=== PATIENT | male | born 1980 | race Two or more races ===

== ENCOUNTER 2022-04-10 18:12 | Emergency (ER) | payer OTHER ==
[~2022-04-10] VITALS: Ht 190.5 cm; Wt 121.2 kg
[2022-04-10] MEDS ORDERED: SPIR-10 PO (18:27)
[2022-04-10] MEDS ORDERED: CRES20TA2 PO (18:27)
[2022-04-10] MEDS ORDERED: JARD1TAB PO (18:27)
[2022-04-10] MEDS ORDERED: CORE12.5 PO (18:27)
[2022-04-10] MEDS ORDERED: ENTR1TAB PO (18:27)
[2022-04-10] MEDS ORDERED: MELA3TAB24 PO (18:27)
[2022-04-10] MEDS ORDERED: PERCOCET 5MG/325MG TAB PO ONE (19:20)
[2022-04-10] MEDS ORDERED: PERC5TAB12 PO (20:44)
[2022-04-10 20:45] VITALS: BP 131/68
[2022-04-10] MEDS ORDERED: OXYCODONE/APAP 5MG/325MG(HOME DOSE PACK) PO ONE (20:45)
[2022-04-11] MEDS ORDERED: UNRESOLVED CLARIFICATION ENTRY XX SCH (00:01)
== END 2022-04-10 21:04 | disposition home or self-care (01) ==
LOC: M ED 18:12
DX: S52.592A Other fractures of lower end of left radius, initial encounter for closed fracture (principal); S52.602A Unspecified fracture of lower end of left ulna, initial encounter for closed fracture; W11.XXXA Fall on and from ladder, initial encounter; Y92.89 Other specified places as the place of occurrence of the external cause; Y93.89 Activity, other specified; I51.9 Heart disease, unspecified; I10 Essential (primary) hypertension; E78.5 Hyperlipidemia, unspecified; Z95.0 Presence of cardiac pacemaker; Z79.899 Other long term (current) drug therapy